=== PATIENT | female | born 1950 | race Asian ===

== ENCOUNTER 2019-08-23 09:03 | Emergency (ER) | payer BC, MEDICARE ==
[~2019-08-23] VITALS: Ht 157.5 cm; Wt 62.6 kg
[~2019-08-23 09:03] MED LIST: GABAPENTIN100 MG PO; GLIMEPIRIDE1 MG PO; JANUVIA100 MG PO; LIDODERM700 MG TD; LOVASTATIN20 MG PO; VALTREX500 MG PO; ZITHROMAX250 MG PO
--- NOTE | 2019-08-23 09:28 | Emergency Department Note ---
History of Present Illnes History of Present Illness Chief Complaint: COVID PUI History of Present Illness This is a 69 year old female arrived to the ED requesting a covid test after her tested +. Pt admits to having cough, malaise and all symptoms associated with COVID 19 Historian: Patient Arrival Mode: Car Onset (how long ago): day(s) Duration (how long): day(s) Timing of current episode: constant Progression: worsening Relieving factors: none Exacerbating factors: none Associated symptoms: Reports cough, Reports fever/chills Treatments prior to arrival: none Past Medical/Family History Physician Review I have reviewed the patient's past medical and family history. Any updates have been documented here. Past Medical History Recent Fever: Yes Clinical Suspicion of Infectio: Yes New/Unexplained Change in Ment: No Past Medical History: Diabetes, Hyperlipedemia Past Surgical History: Appendectomy Social History Smoking Cessation: Never Smoker Alcohol Use: None Any Illegal Drug Use: No TB Exposure/Symptoms: No Physically hurt or threatened: No Other Last Tetanus: unk Review of Systems Review of Systems Constitutional: Reports as per HPI, Reports malaise, Reports weakness EENTM: Reports no symptoms Cardiovascular: Reports no symptoms Respiratory: Reports as per HPI, Reports cough Gastrointestinal: Reports no symptoms Genitourinary: Reports no symptoms Musculoskeletal: Reports no symptoms Integumentary: Reports no symptoms Neurological: Reports no symptoms Psychological: Reports no symptoms Endocrine: Reports no symptoms Hematological/Lymphatic: Reports no symptoms Physical Exam Related Data Allergies: Coded Allergies: No Known Drug Allergies (Verified Allergy, Unknown, 03/15/10) Triage Vital Signs Vital Signs Date Time Temp Pulse Resp B/P (MAP) Pulse Ox O2 Delivery O2 Flow Rate FiO2 08/23/19 09:10 97.6 73 20 174/75 98 Room Air Vital signs reviewed: Yes Physical Exam CONSTITUTIONAL Constitutional: Present well-developed, Present well-nourished HENT HENT: Present normocephalic, Present atraumatic, Present oropharynx clear/moist, Present nose normal HENT L/R: Present left ext ear normal, Present right ext ear normal EYES Eyes: Reports PERRL, Reports conjunctivae normal NECK Neck: Present ROM normal PULMONARY Pulmonary: Present effort normal, Present breath sounds normal CARDIOVASCULAR Cardiovascular: Present regular rhythm, Present heart sounds normal, Present capillary refill normal, Present normal rate GASTROINTESTINAL Abdominal: Present soft, Present nontender, Present bowel sounds normal GENITOURINARY Genitourinary: Present exam deferred SKIN Skin: Present warm, Present dry MUSCULOSKELETAL Musculoskeletal: Present ROM normal NEUROLOGICAL Neurological: Present alert, Present oriented x 3, Present no gross motor or sensory deficits PSYCHOLOGICAL Psychological: Present mood/affect normal, Present judgement normal Assessment & Plan Medical Decision Making MDM 69-year-old well-appearing male arrives to the ED with complaints of cough fever loss of taste and smell. Patient is clinically presenting with signs and symptoms consistent with Covid 19. Patient informed She is positive until proven otherwise. Patient's oxygen saturation remained 99% even on exertion, no evidence of tachypnea or dyspnea noted in the ED. Spoke present length about the importance of sleeping on hER stomach and rotating from side to side. Z-Avinash and Decadron given, signs and symptoms for return discussed. Packet of discharge instruction given. In the light of the Covid pandemic, disaster medicine care was given- patient understands why she was not tested for Covid 19 in the ED, no indications for a chest x-ray at this time given normal oxygen saturation and respiratory status. Assessment & Plan Final Impression: (1) COVID-19 Depart Disposition: HOME, SELF-CARE Last Vital Signs Date Time Temp Pulse Resp B/P (MAP) Pulse Ox O2 Delivery O2 Flow Rate FiO2 08/23/19 09:10 97.6 73 20 174/75 98 Room Air Home Meds Reported Medications Lovastatin (LOVASTATIN) 20 Mg Tablet, 20 MG PO HS 09/28/16 Gabapentin (GABAPENTIN) 100 Mg Capsule, 100 MG PO TID 09/28/16 Glimepiride (GLIMEPIRIDE) 1 Mg Tablet, 1 MG PO DAILY 09/28/16 Sitagliptin Phosphate (JANUVIA) 100 Mg Tablet, 100 MG PO DAILY, #30 TAB 09/28/16 JIMI CHEUNG DO Aug 23, 2019 09:27
== END 2019-08-23 09:40 | disposition home or self-care (01) ==
LOC: ER 09:38
DX: U07.1 COVID-19 (principal); R05 Cough; R53.81 Other malaise; E11.9 Type 2 diabetes mellitus without complications; E78.5 Hyperlipidemia, unspecified
CPT/HCPCS: 99282